=== PATIENT | female | born 1950 | race Caucasian/White ===

== ENCOUNTER 2017-02-04 20:12 | Emergency (ER) | payer OTHER, SELFPAY ==
--- NOTE | 2017-02-04 20:30 | ERPHSYRPT ---
- History of Present Illness Time Seen by Provider: 02/04/17 20:18 Source: patient Exam Limitations: no limitations Physician History: ABOUT 2 HOURS AGO PT WAS HELPING CARRY A DOOR & FRAME WHICH HIT HER ON THE LEFT SIDE OF THE HEAD WITH RESULTANT HEADACHE AND NECK PAIN; DENIES VOMITING, CHEST PAIN, TINGLING/NUMBNESS; ADMITS TO LIGHTHEADEDNESS. Allergies/Adverse Reactions: lorazepam [From Ativan] Allergy (Verified 02/04/17 20:26) Home Medications: Acyclovir DAILY 02/04/17 [History] Alprazolam [Xanax] PO Q12H PRN PRN 02/04/17 [History] Cephalexin Mh 500 mg [Keflex 500 mg] 500 mg PO TID 02/04/17 [History] Lenalidomide [Revlimid] 10 mg PO DAILY 02/04/17 [History] Paroxetine HCl 40 mg PO DAILY 02/04/17 [History] Trazodone HCl 50 mg [Desyrel 50 mg] 50 mg PO HS 02/04/17 [History] - Review of Systems Cardiac: No Chest Pain Abdominal/Gastrointestinal: No Vomiting Musculoskeletal: Neck Pain Neurological: Headache, Other (LIGHTHEADEDNESS), No Sensory Changes All Other Systems: Reviewed and Negative - Nursing Vital Signs Nursing Vital Signs: Initial Vital Signs Temperature 98.2 F 02/04/17 20:15 Pulse Rate 74 02/04/17 20:15 Respiratory Rate 18 02/04/17 20:15 Blood Pressure 144/73 02/04/17 20:15 O2 Sat by Pulse Oximetry 96 02/04/17 20:15 Pain Scale Pain Intensity 4 - Physical Exam General Appearance: alert Eye Exam: PERRL/EOMI Ears, Nose, Throat Exam: TMs normal, pharynx normal, moist mucous membranes Neck Exam: full range of motion, other (MILD LEFT POSTERIOLATERAL NECK TENDERNESS) Respiratory Exam: lungs clear Cardiovascular Exam: normal heart sounds Gastrointestinal/Abdomen Exam: soft, normal bowel sounds Back Exam: normal range of motion, No vertebral tenderness Extremity Exam: normal inspection, normal range of motion, No pedal edema Neurologic Exam: alert, cooperative, sensation nml, No motor deficits Skin Exam: warm, dry, other (MILD LEFT PARIETAL EDEMA) - Course Nursing assessment & vital signs reviewed: Yes - CT Exams Head CT Interpretation: Discussed w/radiologist (NO COMPS. NEGATIVE CT HEAD.) Cervical Spine CT Interpretation: Discussed w/radiologist (NO COMPS. MULTILEVEL DDD. O/W NEGATIVE FX/SUBLUXATION.) Ordered Tests: Active Orders 24 hr Category Date Time Status CERVICAL SPINE WO CONTRAST [CT] Stat Exams 02/04/17 20:24 Taken HEAD WITHOUT CONTRAST [CT] Stat Exams 02/04/17 20:24 Taken - Progress Progress Note: 02/04/17 21:23 PT HAS PAIN MEDICINE AT HOME. - Departure Time of Disposition: 21:23 Departure Disposition: Home Clinical Impression: HEAD CONTUSION, CERVICAL SPRAIN Condition: Stable Critical Care Time: No Referrals: CARMEN PEREZ [Primary Care Provider] - Instructions: Whiplash Additional Instructions: FOLLOW UP WITH PRIVATE DOCTOR TOMORROW. WEAR SOFT C-COLLAR ONLY WHILE AWAKE FOR THE NEXT 2 WEEKS.
[2017-02-04 21:32] VITALS: BP 125/66; PULSE 64; O2SAT 96
--- NOTE | 2017-02-05 08:53 | XRAY ---
Indication: Pain following head injury. Current treatment for multiple myeloma with low platelet count. Multiple contiguous axial images obtained through the head without contrast. Comparison: None Normal appearing brain parenchyma, ventricles, and bony calvarium. Visualized paranasal sinuses and mastoid air cells are clear. Impression: Normal CT head without contrast exam. CTDI 52.21
--- NOTE | 2017-02-05 08:55 | XRAY ---
Indication: Pain following head injury. Current treatment for multiple myeloma with low platelet count. Multiple contiguous axial images obtained through the cervical spine. Sagittal and coronal reformatted images obtained. Comparison: None Axial images negative for acute fracture, suspicious bony lesions, or spinal canal stenosis. Mild/moderate multilevel degenerative endplate spurring, greatest at the C5-C6 level. Also multilevel bilateral degenerative facet arthropathy. Sagittal and coronal reformatted images demonstrates normal alignment. There is C5-C6 degenerative disc space loss. No acute compression fracture, subluxation, or jumped facet. Normal-appearing craniocervical junction. Visualized noncontrasted soft tissues demonstrates subtle heterogeneous thyroid gland. Lung apices clear. CT head reported separately. Impression: 1. Negative acute fracture. 2. Multilevel degenerative changes greatest at the C5-C6 level. 3. Heterogeneous thyroid gland that can be better evaluated with thyroid sonogram if clinically warranted. CTDI 82.13
== END 2017-02-04 21:36 | disposition home or self-care (01) ==
LOC: ED 20:12
DX: S00.93XA Contusion of unspecified part of head, initial encounter (principal); S13.4XXA Sprain of ligaments of cervical spine, initial encounter; W22.8XXA Striking against or struck by other objects, initial encounter
CPT/HCPCS: 70450; 72125; 99283; L0172

== ENCOUNTER 2017-06-13 18:49 | Emergency (ER) | payer OTHER ==
[2017-06-13] MEDS ORDERED: solu-CORTEF 250MG IM STA (19:06)
[2017-06-13 19:09] VITALS: O2SAT 98
[2017-06-13] MEDS ORDERED: solu-CORTEF 250MG ONE (19:09)
--- NOTE | 2017-06-13 19:17 | ERPHSYRPT ---
- History of Present Illness Time Seen by Provider: 06/13/17 19:12 Source: patient Exam Limitations: no limitations Patient Subjective Stated Complaint: Has multiple myeloma and had received stem cell shots last year. She is re-doing her vaccinations and received a pneumonia vaccine and she thinks an MMR around 1600 on 06/11/2017. Her arm began swelling. She took Benadryl and Claritan yesterday and she has taken Claritan today Triage Nursing Assessment: Pt A&O x3, swelling on the right upper extremity, doesn't appear to be in any distress, breathing not affected Physician History: She is re-doing her vaccinations and received a pneumonia vaccine and she thinks an MMR around 1600 on 06/11/2017. Her arm began swelling. She took Benadryl and Claritin yesterday and she has taken Claritin today Patient Has multiple myeloma and had received stem cell shots last year. Timing/Duration: day(s) Associated Symptoms: denies symptoms Allergies/Adverse Reactions: lorazepam [From Ativan] Allergy (Verified 06/13/17 19:10) Home Medications: Acyclovir DAILY 02/04/17 [History] Alprazolam [Xanax] PO Q12H PRN PRN 02/04/17 [History] Paroxetine HCl 40 mg PO DAILY 02/04/17 [History] Trazodone HCl 50 mg [Desyrel 50 mg] 50 mg PO HS 02/04/17 [History] Hx Influenza Vaccination/Date Given: Yes Hx Pneumococcal Vaccination/Date Given: Yes - Review of Systems Constitutional: No Fever, No Chills Eyes: No Symptoms Ears, Nose, & Throat: No Symptoms Respiratory: No Cough, No Dyspnea Cardiac: No Chest Pain, No Edema, No Syncope Abdominal/Gastrointestinal: No Abdominal Pain, No Nausea, No Vomiting, No Diarrhea Genitourinary Symptoms: No Dysuria Musculoskeletal: No Back Pain, No Neck Pain Skin: Cellulitis (right arm), Induration, No Rash Neurological: No Dizziness, No Focal Weakness, No Sensory Changes Psychological: No Symptoms Endocrine: No Symptoms All Other Systems: Reviewed and Negative - Past Medical History Cardiac History: Other Other Medical History: Multiple Myeloma, MVP - Past Surgical History Female Surgical History: Hysterectomy Other Surgical History: Stem cell transfusion May 2016 - Social History Smoking Status: Never smoker Exposure to second hand smoke: No Drug Use: none Patient Lives Alone: Yes - Nursing Vital Signs Nursing Vital Signs: Initial Vital Signs Temperature 98.1 F 06/13/17 18:55 Pulse Rate 97 H 06/13/17 18:55 Blood Pressure 136/82 06/13/17 18:55 O2 Sat by Pulse Oximetry 98 06/13/17 18:55 Pain Scale Pain Intensity 0 - Physical Exam General Appearance: no apparent distress, alert Eye Exam: PERRL/EOMI, eyes nml inspection Ears, Nose, Throat Exam: normal ENT inspection, TMs normal, pharynx normal, moist mucous membranes Neck Exam: normal inspection, non-tender, supple, full range of motion Respiratory Exam: normal breath sounds, lungs clear, No respiratory distress Cardiovascular Exam: regular rate/rhythm, normal heart sounds, normal peripheral pulses Gastrointestinal/Abdomen Exam: soft, normal bowel sounds, No tenderness, No mass Back Exam: normal inspection, normal range of motion, No CVA tenderness, No vertebral tenderness Extremity Exam: normal range of motion, swelling (left arm) Neurologic Exam: alert, oriented x 3, cooperative, normal mood/affect, nml cerebellar function, nml station & gait, sensation nml, No motor deficits Skin Exam: normal color, warm, dry, No rash Lymphatic Exam: No adenopathy SpO2: 98 Oxygen Delivery: Aerosol Mask - Course Nursing assessment & vital signs reviewed: Yes Ordered Tests: Medication Summary Discontinued Medications Generic Name Dose Route Start Last Admin Trade Name Freq PRN Reason Stop Dose Admin Hydrocortisone Sodium Succinate 250 mg 06/13/17 19:06 Solu-Cortef 250mg IM 06/13/17 19:07 Q6H STA Hydrocortisone Sodium Succinate Confirm 06/13/17 19:09 Solu-Cortef 250mg Administered 06/13/17 19:10 Dose 250 mg .ROUTE .STK-MED ONE - Progress Progress: unchanged Counseled pt/family regarding: diagnosis, need for follow-up - Departure Time of Disposition: 19:14 Departure Disposition: Home Clinical Impression: Reaction at application site Immunization reaction Qualifiers: Encounter type: initial encounter Qualified Code(s): T50.Z95A - Adverse effect of other vaccines and biological substances, initial encounter Condition: Stable Critical Care Time: No Referrals: CARMEN PEREZ [Primary Care Provider] - Additional Instructions: ALLERGIC REACTION 1. There are several different reasons for the cause of an allergic reaction. If you are aware of a trigger, continue to avoid the problem. 2. If at any time you experience any of these signs or symptoms, you should seek medical attention immediately: A. Sudden onset of rash B. Wheezing C. Shortness of breath D. Thick tongue E. Dizziness 3. If you experience an allergic reaction and are treated in the emergency department, you should follow up with your family physician in order to determine how you will need to handle your allergy. Prescriptions: Methylprednisolone Packet [Medrol Dosepack] 4 mg PO UD #30 packet
[2017-06-13 19:23] VITALS: BP 133/71; PULSE 87
== END 2017-06-13 19:25 | disposition home or self-care (01) ==
LOC: ED 18:49
DX: T50.Z95A Adverse effect of other vaccines and biological substances, initial encounter (principal); C43.9 Malignant melanoma of skin, unspecified; Z79.899 Other long term (current) drug therapy; M79.89 Other specified soft tissue disorders
CPT/HCPCS: 96372; 99284; J1720

== ENCOUNTER 2017-08-08 06:04 | Day surgery (SDC) | payer OTHER ==
[~2017-08-08 06:04] MED LIST: Lactated Ringers 1,000 ML IV SCH
[2017-08-08] MEDS ORDERED: DIPRIVAN 200 MG/20 ML IV ONE (06:05)
[2017-08-08] MEDS ORDERED: Lactated Ringers 1,000 ML IV ONE ×2 (06:32→08:10)
--- NOTE | 2017-08-08 08:46 | OP ---
SURGERY DATE/TIME: 08/08/2017 0745 PREOPERATIVE DIAGNOSIS: Rectal pain. POSTOPERATIVE DIAGNOSIS: Diverticulosis throughout the colon. PROCEDURE: Colonoscopy. SURGEON: Dr. Garcia. ANESTHESIA: MAC. Medications given by anesthesia department. HISTORY: The patient is a 66 year-old white female presenting now for endoscopic evaluation. She reports she has been having problems with rectal pain but no bleeding. She has a history of diverticulosis based on a previous colonoscopy years ago. The patient was felt the need for re-investigation. She was reappraised of the risks of the procedure including the risk of perforation, phlebitis, untoward reaction to medication, bleeding and missed lesions. The patient verbalized her understanding and desired to have the procedure performed. DESCRIPTION OF PROCEDURE: The patient was given the medications by the anesthesia department. She had continuous pulse oximetry, ECG monitoring, intermittent blood pressure monitoring and tidal CO2 monitoring during the examination. She was placed in the left lateral decubitus position. A digital rectal examination was performed and revealed normal anal sphincter tone and no masses. The flexible Olympus pediatric colonoscope was used to intubate the rectum. A view of the colon was developed sequentially to the cecum. Upon insertion and withdrawal, including a retroflex view in the rectum, there was noted diverticula throughout the colon otherwise no mucosal lesions were encountered. The scope was removed from the patient who tolerated the procedure well and was sent back to OP recovery in good condition. The prep is noted to be fair to good. It was noted that the patient's colon was quite tortuous.
[2017-08-08 09:07] VITALS: O2SAT 99
[2017-08-08 09:42] VITALS: BP 146/88; PULSE 68
== END 2017-08-08 09:15 | disposition home or self-care (01) ==
LOC: SDC 06:04
PROVIDERS: ATTEND Family Medicine
DX: K62.89 Other specified diseases of anus and rectum (principal); K57.90 Diverticulosis of intestine, part unspecified, without perforation or abscess without bleeding
CPT/HCPCS: J2704

== ENCOUNTER 2018-10-11 10:33 | Emergency (ER) | payer MEDICARE, OTHER ==
--- NOTE | 2018-10-11 10:45 | ERPHSYRPT ---
- History of Present Illness Time Seen by Provider: 10/11/18 10:42 Source: patient Physician History: c/o sore throat for 1-2 days, c/o swollowing difficulty Timing/Duration: gradual onset Severity: moderate ENT Location: throat Associated Symptoms: ear pain (R), ear pain (L), sore throat Allergies/Adverse Reactions: lorazepam [From Ativan] Allergy (Severe, Verified 10/11/18 10:43) black cohosh Allergy (Intermediate, Verified 10/11/18 10:43) Rash Home Medications: Acyclovir 800 mg PO BID 02/04/17 [History] Alprazolam [Xanax] 0.25 tab PO HS 02/04/17 [History] PARoxetine HCl [Paroxetine HCl] 40 mg PO DAILY 02/04/17 [History] Trazodone HCl 50 mg [Desyrel 50 mg] 50 mg PO HS 02/04/17 [History] Cyanocobalamin (Vitamin B-12) [Vitamin B-12] 1,000 mcg PO DAILY 08/01/17 [ History] Hx Influenza Vaccination/Date Given: Yes Hx Pneumococcal Vaccination/Date Given: Yes - Review of Systems Constitutional: No Symptoms Eyes: No Symptoms Ears, Nose, & Throat: Hoarse, Painful Swallowing Respiratory: No Symptoms Cardiac: No Symptoms Abdominal/Gastrointestinal: No Symptoms Musculoskeletal: No Symptoms - Past Medical History Pertinent Past Medical History: No Neurological History: No Pertinent History ENT History: Cataracts Cardiac History: Other Respiratory History: No Pertinent History Endocrine Medical History: No Pertinent History Musculoskeletal History: No Pertinent History GI Medical History: No Pertinent History History: No Pertinent History Psycho-Social History: No Pertinent History Female Reproductive Disorders: No Pertinent History Other Medical History: Multiple Myeloma, MVP - Past Surgical History Past Surgical History: Yes Neuro Surgical History: No Pertinent History Cardiac: No Pertinent History Respiratory: No Pertinent History Gastrointestinal: No Pertinent History Musculoskeletal: No Pertinent History Female Surgical History: Hysterectomy, Tubal Ligation Other Surgical History: Stem cell transfusion May 2016 - Social History Smoking Status: Never smoker Exposure to second hand smoke: No Drug Use: none Patient Lives Alone: Yes - Nursing Vital Signs Nursing Vital Signs: Initial Vital Signs Temperature 98.4 F 10/11/18 10:37 Pulse Rate 107 H 10/11/18 10:37 Blood Pressure 166/92 10/11/18 10:37 O2 Sat by Pulse Oximetry 99 10/11/18 10:37 Pain Scale Pain Intensity 5 - Physical Exam General Appearance: no apparent distress, alert Eye Exam: bilateral eye: normal inspection Ear Exam: bilateral ear: auricle normal Nasal Exam: normal inspection Throat Exam: pharynx tenderness, tonsillar exudate Neck Exam: normal inspection Cardiovascular/Respiratory Exam: chest non-tender Neurologic Exam: alert Skin Exam: normal color SpO2 Interpretation: normal - Course Nursing assessment & vital signs reviewed: Yes Ordered Tests: Medication Summary Discontinued Medications Generic Name Dose Route Start Last Admin Trade Name Wanda PRN Reason Stop Dose Admin Ceftriaxone Sodium 1,000 mg 10/11/18 11:38 10/11/18 11:44 Rocephin 1000 Mg Inj IM 10/11/18 11:39 1,000 mg STAT ONE Administration Ceftriaxone Sodium Confirm 10/11/18 11:40 Rocephin 1000 Mg Inj Administered 10/11/18 11:41 Dose 1,000 mg .ROUTE .STK-MED ONE Lidocaine HCl Confirm 10/11/18 11:40 Xylocaine 1% Hcl 20 Ml Mdv Administered 10/11/18 11:41 Dose 3 ml .ROUTE .STK-MED ONE Lab/Rad Data: Laboratory Results 10/11/18 Range/Units 10:40 Group A Strep Antibody NEGATIVE (NEGATIVE) - Progress Progress: unchanged Counseled pt/family regarding: lab results, diagnosis, need for follow-up - Departure Departure Disposition: Home Clinical Impression: Acute pharyngitis Qualifiers: Pharyngitis/tonsillitis etiology: other specified organisms Qualified Code(s): J02.8 - Acute pharyngitis due to other specified organisms Condition: Stable Critical Care Time: No Referrals: CARMEN PEREZ [Primary Care Provider] - Instructions: Sore Throat, Adult (DC) Additional Instructions: UPPER RESPIRATORY INFECTIONS 1. The signs and symptoms of a cold may last up to 10 days. These illnesses are due to viruses which are not treatable with antibiotics. 2. The following suggestions can aid in recovery and to minimize symptoms: A. Increase fluid intake. B. Acetaminophen or Ibuprofen as directed. C. Avoid smoking environments as this will increase the risk of developing pneumonia. D. For children, may use a cool mist vaporizer in the child's room. 3. Contact your Family Physician if you note: A. Persisten fever >103 for more than 3 days B. Breathing difficulty C. Productive cough of yellow/green sputum D. Illness greater than 7 days E. Persistent vomiting F. Stiff neck Discharge/Care Plan KIRSTEN VOGEL was seen on 10/11/18 in the Emergency Room. The patient was counseled regarding Diagnosis,Lab results, Imaging studies, need for follow up and when to return to the Emergency Room. Prescriptions given: Discharge Note I have spoken with the patient and/or caregivers. I have explained the patient' s condition, diagnosis and treatment plan based on the information available to me at this time. I have answered the patient's and/or caregiver's questions and addressed any concerns. The patient and/or caregivers have as good understanding of the patient's diagnosis, condition and treatment plan as can be expected at this point. The vital signs have been stable. The patient's condition is stable and appropriate for discharge from the emergency department. The patient will pursue further outpatient evaluation with the primary care physician or other designated or consulting physician as outlined in the discharge instructions. The patient and/or caregivers are agreeable to this plan of care and follow-up instructions have been explained in detail. The patient and/or caregivers have received these instruction. The patient/and or caregivers are aware that any significant change in condition or worsening of symptoms should prompt an immediate return to this or the closest emergency department or call 911. Prescriptions: Azithromycin [Zithromax Tri-Gian] 500 mg PO DAILY #3 tablet
[2018-10-11] MEDS ORDERED: XYLOCAINE 1% HCL 20 ML MDV ONE (11:40)
[2018-10-11] MEDS ORDERED: Rocephin 1000 MG INJ ONE (11:40)
[2018-10-11] MEDS: Rocephin 1000 MG INJ IM ONE (11:44)
[2018-10-11 11:59] VITALS: BP 137/65; PULSE 98; O2SAT 95
== END 2018-10-11 11:59 | disposition home or self-care (01) ==
LOC: ED 10:33
DX: J02.8 Acute pharyngitis due to other specified organisms (principal); Z79.899 Other long term (current) drug therapy
CPT/HCPCS: 87651; 96372; 99284; J0696

== ENCOUNTER 2020-07-09 05:46 | Emergency (ER) | payer MEDICARE, OTHER ==
[2020-07-09] MEDS ORDERED: solu-MEDROL 125 MG IM ONE (06:32)
[2020-07-09] MEDS ORDERED: Pepcid 20 MG PO ONE (06:32)
[2020-07-09] MEDS ORDERED: BENADRYL 25 MG CAPSULE PO ONE (06:32)
[2020-07-09] MEDS ORDERED: Pepcid 20 MG ONE (06:37)
[2020-07-09] MEDS ORDERED: BENADRYL 25 MG CAPSULE ONE (06:37)
[2020-07-09] MEDS ORDERED: solu-MEDROL 125 MG ONE (06:37)
--- NOTE | 2020-07-09 06:38 | ERPHSYRPT ---
- History of Present Illness Time Seen by Provider: 07/09/20 06:10 Source: patient, family Exam Limitations: no limitations Patient Subjective Stated Complaint: "The swelling on my face is worse." Triage Nursing Assessment: Patient reported onset of redness to her forehead after being stuck by a briar while mushroom hunting. this happened roughly 8-9 days ago. Since then, she has been taking bactrim, itraconazole, and cephalexin without improvement. This morning, the patient reported that she now has swelling under her eyes and to the left eyelid. Denied pain in the eye, visual disturbances, sore throat, shortness of breath, or difficulty swallowing. Pupils 3mm bilateral. redness noted to the forehead and periorbital area as well as bilateral cheeks. No noted swelling to the oral mucosa or neck. No noted lymphadenopathy. Symmetrical chest expansion. Peripheral pulses +2 bilateral. Physician History: This is a 69-year-old white female patient of Dr. Garcia who presents with a several day history of worsening redness and swelling as well as itchiness on her forehead. She sought medical care and was initially given Bactrim. The condition worsened and Keflex was added. She was then seen at the urgent care clinic yesterday and was given an antifungal medication. Despite this treatment regimen, the redness itchiness and swelling worsened. She has not had fever. She has no wheezing. Patient has a history of multiple myeloma but it has been in remission for 4 years. This was a reason given that she was not put on any steroids yesterday. Timing/Duration: day(s) (Several) Quality: itchy Severity: moderate Location: face Possible Causes: no cause identified Associated Symptoms: change in skin texture, swelling/mass/lumps Allergies/Adverse Reactions: lorazepam [From Ativan] Allergy (Severe, Verified 07/09/20 05:51) black cohosh Allergy (Intermediate, Verified 07/09/20 05:51) Rash Home Medications: Acyclovir 800 mg PO BID 02/04/17 [History] PARoxetine HCL [Paroxetine HCl] 40 mg PO DAILY 02/04/17 [History] Trazodone HCl 50 mg [Desyrel 50 mg] 50 mg PO HS 02/04/17 [History] Cyanocobalamin (Vitamin B-12) [Vitamin B-12] 1,000 mcg PO DAILY 08/01/17 [History] Hx Tetanus, Diphtheria Vaccination/Date Given: No Hx Influenza Vaccination/Date Given: Yes Hx Pneumococcal Vaccination/Date Given: Yes Travel Risk - International Travel Have you traveled outside of the country in past 3 weeks: No - Coronavirus Screening Are you exhibiting any of the following symptoms?: No Close contact with a COVID-19 positive Pt in past 14-21 Days: No - Vaccine Status Have you recieved a Covid-19 vaccination: Yes 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: [employer] - Vaccination Dates Date of 2cond Vaccination (if applicable): na - Review of Systems Constitutional: No Symptoms Eyes: No Symptoms Ears, Nose, & Throat: No Symptoms Respiratory: No Symptoms Cardiac: No Symptoms Abdominal/Gastrointestinal: No Symptoms Genitourinary Symptoms: No Symptoms Musculoskeletal: No Symptoms Skin: Other (Redness swelling itchiness of forehead and periorbital regions bilaterally) Neurological: No Symptoms Psychological: No Symptoms Endocrine: No Symptoms Hematologic/Lymphatic: No Symptoms Immunological/Allergic: No Symptoms All Other Systems: Reviewed and Negative - Past Medical History Pertinent Past Medical History: No Neurological History: No Pertinent History ENT History: Cataracts Cardiac History: Other Respiratory History: No Pertinent History Endocrine Medical History: No Pertinent History Musculoskeletal History: No Pertinent History GI Medical History: No Pertinent History History: No Pertinent History Psycho-Social History: No Pertinent History Female Reproductive Disorders: No Pertinent History Other Medical History: Multiple Myeloma, MVP - Past Surgical History Past Surgical History: Yes Neuro Surgical History: No Pertinent History Cardiac: No Pertinent History Respiratory: No Pertinent History Gastrointestinal: No Pertinent History Musculoskeletal: No Pertinent History Female Surgical History: Hysterectomy, Tubal Ligation Other Surgical History: Stem cell transfusion May 2016 - Social History Smoking Status: Never smoker Exposure to second hand smoke: No Drug Use: none Patient Lives Alone: Yes - Female History Hx Now: No - Nursing Vital Signs Nursing Vital Signs: Initial Vital Signs Temperature 98.3 F 07/09/20 05:47 Pulse Rate 68 07/09/20 05:47 Respiratory Rate 16 07/09/20 05:47 Blood Pressure 158/85 07/09/20 05:47 O2 Sat by Pulse Oximetry 98 07/09/20 05:47 Pain Scale Pain Intensity 0 - Physical Exam General Appearance: no apparent distress, alert, anxiety Eye Exam: PERRL/EOMI, eyes nml inspection Ears, Nose, Throat Exam: normal ENT inspection Neck Exam: normal inspection Respiratory Exam: airway intact, No chest tenderness, No respiratory distress, No wheezing, No stridor Pelvic Exam: not done Rectal Exam: not done Back Exam: normal inspection, normal range of motion, No CVA tenderness Extremity Exam: normal inspection, normal range of motion, pelvis stable Neurologic Exam: alert, oriented x 3, cooperative, 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 Eyes proper are not included in the process) Lymphatic Exam: No adenopathy SpO2 Interpretation: normal SpO2: 98 O2 Delivery: Room Air - Course Nursing assessment & vital signs reviewed: Yes - Progress Progress: unchanged Counseled pt/family regarding: diagnosis, need for follow-up - Departure Departure Disposition: Home Clinical Impression: Contact dermatitis Condition: Stable Critical Care Time: No Referrals: CARMEN GARCIA [Primary Care Provider] - Additional Instructions: Continue your antibiotics and antifungal medication. Late this afternoon or early evening later today, take another dose of prednisone. Continue Benadryl 25 mg ([id number]) 3 times a day for the next 3 to 4 days. Fill your Pepcid prescription and take as prescribed for the next 3 to 4 days. Fill your prednisone prescription and take 1 dose as discussed today. Then, hold the steroid dosing until you call your primary care physician tomorrow morning for further directions. Return to the emergency department if symptoms worsen. Prescriptions: Prednisone 10 mg [Deltasone 10 mg] 10 mg PO TID #12 tablet Famotidine 20 mg [Pepcid 20 MG] 20 mg PO DAILY #10 tablet
[2020-07-09 07:03] VITALS: BP 142/78; PULSE 68; O2SAT 98
== END 2020-07-09 06:55 | disposition home or self-care (01) ==
LOC: ED 05:46
DX: L25.9 Unspecified contact dermatitis, unspecified cause (principal)
CPT/HCPCS: 96372; 99284; J2930; A9270-GY

== ENCOUNTER 2021-04-04 13:54 | Day surgery (SDC) | payer MEDICARE, OTHER ==
[2021-04-04] MEDS ORDERED: Depo-Medrol 40 MG/ML IM ONE (13:55)
[2021-04-04] MEDS ORDERED: Sodium Chloride 0.9% 10 ML FLUSH Syringe IJ ONE (13:55)
[2021-04-04] MEDS ORDERED: DIPRIVAN 200 MG/20 ML IV ONE (16:58)
[2021-04-04] MEDS ORDERED: Lactated Ringers 1,000 ML IV ONE (17:16)
--- NOTE | 2021-04-04 22:18 | XRAY ---
Indication: Left L4-S1 transforaminal MASOOD. Intraoperative fluoroscopy provided for 22 seconds. 3 digital spot image submitted for interpretation demonstrates posterior needle tips projecting over the expected left L4 and L5 nerve roots. Small amount of contrast injected for needle tip placement. Correlate with intraoperative findings/report.
--- NOTE | 2021-04-05 08:52 | XRAY ---
22 seconds of fluoroscopy was used in surgery for a left L4-S1 transforaminal MASOOD.
== END 2021-04-04 17:25 | disposition home or self-care (01) ==
LOC: SDC-PAIN 13:54
PROVIDERS: ATTEND Psychiatry & Neurology Pain Medicine
DX: M54.16 Radiculopathy, lumbar region (principal); Z79.899 Other long term (current) drug therapy
CPT/HCPCS: 64483; 64484; 72100; 77003; J1030; J2704; Q9966

== ENCOUNTER 2021-05-16 14:56 | Day surgery (SDC) | payer MEDICARE, OTHER ==
[2021-05-16] MEDS ORDERED: Depo-Medrol 40 MG/ML IM ONE (14:57)
[2021-05-16] MEDS ORDERED: Sodium Chloride 0.9(Preservative Free) 10 ML IJ ONE (14:57)
[2021-05-16] MEDS ORDERED: Lactated Ringers 1,000 ML IV ONE (16:04)
[2021-05-16] MEDS ORDERED: DIPRIVAN 200 MG/20 ML IV ONE (17:38)
--- NOTE | 2021-05-16 19:23 | XRAY ---
Indication: Left L3-S1 transforaminal MASOOD. Intraoperative fluoroscopy provided for 36 seconds. 3 digital spot image submitted for interpretation demonstrates posterior needle tips projecting over the expected left L3-L5 nerve roots. Small amount of contrast injected for needle tip placement. Correlate with intraoperative findings/report.
--- NOTE | 2021-05-17 09:22 | XRAY ---
36 seconds fluoroscopy time in surgery for left L3-L5 transforaminal MASOOD.
== END 2021-05-16 18:30 | disposition home or self-care (01) ==
LOC: SDC-PAIN 14:56
PROVIDERS: ATTEND Psychiatry & Neurology Pain Medicine
DX: M54.16 Radiculopathy, lumbar region (principal); Z79.899 Other long term (current) drug therapy
CPT/HCPCS: 64483; 64484; 72100; 77003; J1030; J2704; Q9966

== ENCOUNTER 2021-06-04 06:06 | Day surgery (SDC) | payer MEDICARE, OTHER ==
[2021-06-04] MEDS ORDERED: Lactated Ringers 1,000 ML IV SCH (06:30)
[2021-06-04] MEDS ORDERED: DIPRIVAN 200 MG/20 ML IV ONE (07:56)
[2021-06-04] MEDS ORDERED: Xylocaine-Mpf 2% 5 Ml Vial ONE (07:56)
[2021-06-04] MEDS ORDERED: Versed 2 MG/2 ML Injection ONE (07:56)
[2021-06-04 09:01] VITALS: O2SAT 99
[2021-06-04 09:11] VITALS: BP 139/73; PULSE 64
--- NOTE | 2021-06-04 11:18 | OP ---
SURGERY DATE/TIME: 06/04/2021 0755 PREOPERATIVE DIAGNOSIS: Chest pain. POSTOPERATIVE DIAGNOSIS: Gastritis. PROCEDURE: Esophagogastroduodenoscopy with biopsy. SURGEON: Dr. Garcia. ANESTHESIA: Medications were given by the anesthesia department. BRIEF HISTORY: The patient is a 70-year-old with increasing chest pain. She had seen her manager community development. They found no reason for her chest pain and thought she should have endoscopic evaluation to rule out the presence of esophagitis. The patient was appraised of the risks of the procedure including the risk of perforation, phlebitis, untoward reaction to medication, bleeding and missed lesions. The patient verbalized her understanding and desired to have the procedure performed. DESCRIPTION OF PROCEDURE: The patient was given the medications by the anesthesia department. She had continuous pulse oximetry, ECG monitoring, intermittent blood pressure monitoring and tidal CO2 monitoring during the examination. She was placed in the left lateral decubitus position. A bite block was placed. The flexible Olympus gastroscope was used to intubate the oropharynx. The scope was easily passed in the esophagus which appeared to be normal throughout its length. The stomach was entered where normal gastric rugal folds were seen. There was evidence of erythema however present throughout the stomach. The gastric rugal folds distended nicely with insufflation of air. The scope was passed along the greater curvature of the stomach to the antrum. The pylorus was encountered and intubated. The duodenum inspected and found to be normal. The scope is withdrawn towards the stomach again. A retroflex view was obtained of the lesser curvature, fundus and cardia regions of the stomach and these appeared to be essentially normal. The scope was then redirected towards the gastric antrum and biopsies were obtained to rule out the presence of Helicobacter pylori-type organisms. The scope was then removed from the patient who tolerated the procedure well and was sent back to outpatient recovery in good condition.
== END 2021-06-04 09:15 | disposition home or self-care (01) ==
LOC: SDC 06:06
PROVIDERS: ATTEND Family Medicine
DX: K29.70 Gastritis, unspecified, without bleeding (principal); R07.9 Chest pain, unspecified
CPT/HCPCS: J2250; J2704

== ENCOUNTER 2021-07-11 12:55 | Day surgery (SDC) | payer MEDICARE, OTHER ==
[2021-07-11] MEDS ORDERED: Depo-Medrol 40 MG/ML IM ONE (12:56)
[2021-07-11] MEDS ORDERED: Sodium Chloride 0.9(Preservative Free) 10 ML IJ ONE (12:56)
[2021-07-11] MEDS ORDERED: Lactated Ringers 1,000 ML IV ONE (15:02)
--- NOTE | 2021-07-11 16:36 | XRAY ---
Indication: Left L3-L5 transforaminal MASOOD. Intraoperative fluoroscopy provided for 44 seconds. 2 digital spot image submitted for interpretation demonstrates needle tips projecting over the left L3 and L4 nerve roots. Small amount of contrast injected for needle tip placement. Correlate with intraoperative findings/report.
--- NOTE | 2021-07-11 17:04 | XRAY ---
44 seconds of fluoroscopy was used in surgery for a left L3-L5 transforaminal MASOOD.
== END 2021-07-11 15:55 | disposition home or self-care (01) ==
LOC: SDC-PAIN 12:55
PROVIDERS: ATTEND Psychiatry & Neurology Pain Medicine
DX: M54.16 Radiculopathy, lumbar region (principal); Z79.899 Other long term (current) drug therapy
CPT/HCPCS: 64483; 64484; 72100; 77003; J1030; Q9966

== ENCOUNTER 2021-10-31 13:43 | Day surgery (SDC) | payer MEDICARE, OTHER ==
[2021-10-31] MEDS ORDERED: Sodium Chloride 0.9(Preservative Free) 10 ML IJ ONE (13:44)
[2021-10-31] MEDS ORDERED: Decadron 4 MG INJ IV ONE (13:44)
[2021-10-31] MEDS ORDERED: XYLOCAINE-MPF 1% 5ML SDV IJ ONE (13:44)
[2021-10-31] MEDS ORDERED: Depo-Medrol 40 MG/ML IM ONE (13:44)
[2021-10-31] MEDS ORDERED: DIPRIVAN 200 MG/20 ML IV ONE (15:09)
[2021-10-31] MEDS ORDERED: Lactated Ringers 1,000 ML IV ONE (15:49)
--- NOTE | 2021-11-01 08:47 | XRAY ---
Indication: Left L4-S1 transforaminal MASOOD. Intraoperative fluoroscopy provided for 19 seconds. 4 digital spot images submitted for interpretation demonstrates posterior needle tips projecting over the expected left L4 and L5 nerve roots. Small amount of contrast injected for needle tip placement. Correlate with intraoperative findings/report.
--- NOTE | 2021-11-01 08:48 | XRAY ---
Indication: Left piriformis muscle injection. Intraoperative fluoroscopy provided for 6 seconds. Single digital spot image submitted for interpretation demonstrates posterior needle tip projecting over the expected left piriformis muscle. Small amount of contrast injected for needle tip placement. Correlate with intraoperative findings/report.
--- NOTE | 2021-11-01 09:20 | XRAY ---
19 seconds fluoroscopy time in surgery for left L4-S1 transforaminal MASOOD.
--- NOTE | 2021-11-01 09:20 | XRAY ---
6 seconds fluoroscopy time in surgery for left piriformis and gluteal TF injections.
== END 2021-10-31 15:29 | disposition home or self-care (01) ==
LOC: SDC-PAIN 13:43
PROVIDERS: ATTEND Psychiatry & Neurology Pain Medicine
DX: M54.16 Radiculopathy, lumbar region (principal); M79.18 Myalgia, other site; Z79.899 Other long term (current) drug therapy
CPT/HCPCS: 20552; 64483; 64484; 72100; 72170; 77002; 77003; J1030; J1100; J2704; Q9966